=== PATIENT | female | born 1960 | race Caucasian/White ===

== ENCOUNTER 2021-06-02 07:54 | Outpatient (REF) | payer BC, SELFPAY ==
--- NOTE | ~2021-06-02 | MM_ITS ---
EXAMINATION: MM SCREENING DIGITAL BREAST TOMOSYNTHESIS, BILATERAL CLINICAL INFORMATION: Screening. Asymptomatic. The lifetime risk of breast cancer based on the Tyrer-Cuzick Model is 7%. COMPARISON: Mammography: 05/27/2020, 01/14/2019, 12/31/2017 TECHNIQUE: Digital breast tomosynthesis is performed in both the craniocaudal and mediolateral oblique views along with computer-aided detection (CAD). Synthesized 2D images are generated from the tomosynthesis. FINDINGS: The breasts are almost entirely fatty (ACR BI-RADS breast composition Category a). There are no significant masses, abnormal calcifications, or other abnormalities. Background stromal and fibroglandular densities are stable. The axilla and skin contours are unremarkable. No significant changes. MM/MM tomosynthesis screening BI IMPRESSION: No mammographic evidence of malignancy. ASSESSMENT: BI-RADS 1: Negative RECOMMENDATION: Routine annual mammography screening. This patient's information was entered into a reminder system with a target due date for their next mammogram.
== END 2021-06-02 07:55 | disposition home or self-care (01) ==
LOC: HO.MAMMO 07:54
PROVIDERS: PCP Internal Medicine; Visit Provider Internal Medicine
DX: Z12.31 Encounter for screening mammogram for malignant neoplasm of breast (principal)
CPT/HCPCS: 77063; 77067

== ENCOUNTER 2022-07-14 08:02 | Outpatient (REF) | payer BC, SELFPAY ==
--- NOTE | ~2022-07-14 | MM_ITS ---
EXAMINATION: MM SCREENING DIGITAL BREAST TOMOSYNTHESIS, BILATERAL CLINICAL INFORMATION: Screening. Asymptomatic. The lifetime risk of breast cancer based on the Tyrer-Cuzick Model is 6%. COMPARISON: Mammography: 06/02/2021, 05/27/2020, 01/14/2019 TECHNIQUE: Digital breast tomosynthesis is performed in both the craniocaudal and mediolateral oblique views along with computer-aided detection (CAD). Synthesized 2D images are generated from the tomosynthesis. FINDINGS: There are scattered areas of fibroglandular density (ACR BI-RADS breast composition Category b). There are no significant masses, abnormal calcifications, or other abnormalities. Parenchymal pattern is similar to prior studies. MM/MM tomosynthesis screening BI IMPRESSION: No mammographic evidence of malignancy. ASSESSMENT: BI-RADS 1: Negative RECOMMENDATION: Routine annual mammography screening. This patient's information was entered into a reminder system with a target due date for their next mammogram.
== END 2022-07-14 08:03 | disposition home or self-care (01) ==
LOC: HO.MAMMO 08:02
PROVIDERS: PCP Obstetrics & Gynecology; Visit Provider Internal Medicine
DX: Z12.31 Encounter for screening mammogram for malignant neoplasm of breast (principal)
CPT/HCPCS: 77063; 77067

== ENCOUNTER 2023-07-17 07:52 | Outpatient (REF) | payer BC, SELFPAY ==
--- NOTE | ~2023-07-17 | MM_ITS ---
EXAMINATION: MM SCREENING DIGITAL BREAST TOMOSYNTHESIS, BILATERAL CLINICAL INFORMATION: Screening. Asymptomatic. COMPARISON: Mammography: 07/14/2022, 06/02/2021, 05/27/2020, and dating back to 2012. TECHNIQUE: Digital breast tomosynthesis is performed in both the craniocaudal and mediolateral oblique views along with computer-aided detection (CAD). Synthesized 2D images are generated from the tomosynthesis. FINDINGS: The breasts are almost entirely fatty (ACR BI-RADS breast composition Category a). There are no suspicious masses, suspicious grouped calcifications, or areas of architectural distortion. The parenchymal pattern is stable from prior exams. There are no skin changes. MM/MM tomosynthesis screening BI IMPRESSION: No mammographic evidence of malignancy. ASSESSMENT: BI-RADS BI-RADS 1 - Negative RECOMMENDATION: Routine annual mammography screening. 1 year F/U This examination should not preclude the clinical evaluation of a suspicious palpable abnormality. This patient's information was entered into a reminder system with a target due date for their next mammogram.
== END 2023-07-17 07:53 | disposition home or self-care (01) ==
LOC: HO.MAMMO 07:52
PROVIDERS: PCP Internal Medicine; Visit Provider Obstetrics & Gynecology
DX: Z12.31 Encounter for screening mammogram for malignant neoplasm of breast (principal)
CPT/HCPCS: 77063; 77067

== ENCOUNTER → 2023-07-17 08:00 | Outpatient (BNV) | payer BC, SELFPAY | PROVIDERS: PCP Internal Medicine; Visit Provider Radiology Diagnostic Radiology | DX: Z12.31 Encounter for screening mammogram for malignant neoplasm of breast (principal) | CPT/HCPCS: 77063; 77067 ==

== ENCOUNTER 2024-08-15 07:34 | Outpatient (REF) | payer BC, SELFPAY ==
--- NOTE | ~2024-08-15 | MM_ITS ---
EXAMINATION: MM SCREENING DIGITAL BREAST TOMOSYNTHESIS, BILATERAL CLINICAL INFORMATION: Screening. Asymptomatic. COMPARISON: Mammography: Comparison is made with available priors TECHNIQUE: Digital breast mammography with tomosynthesis is performed in both the craniocaudal and mediolateral oblique views along with computer-aided detection (CAD). FINDINGS: There are scattered areas of fibroglandular density (ACR BI-RADS breast composition Category b). There are no significant masses, abnormal calcifications, or other abnormalities. MM/MM tomosynthesis screening BI IMPRESSION: No mammographic evidence of malignancy. ASSESSMENT: BI-RADS BI-RADS 1 - Negative RECOMMENDATION: Routine annual mammography screening. 1 year F/U This examination should not preclude the clinical evaluation of a suspicious palpable abnormality. This patient's information was entered into a reminder system with a target due date for their next mammogram. Electronically signed by: Malina Mccabe DO 08/26/2024 05:52 PM EDT
== END 2024-08-15 07:35 | disposition home or self-care (01) ==
LOC: HO.MAMMO 07:34
PROVIDERS: Absent Provider Obstetrics & Gynecology; PCP Internal Medicine; Visit Provider Internal Medicine
DX: Z12.31 Encounter for screening mammogram for malignant neoplasm of breast (principal)
CPT/HCPCS: 77063; 77067

== ENCOUNTER → 2024-08-15 07:45 | Outpatient (BNV) | payer BC, SELFPAY | PROVIDERS: Absent Provider Obstetrics & Gynecology; PCP Internal Medicine; Visit Provider Internal Medicine | DX: Z12.31 Encounter for screening mammogram for malignant neoplasm of breast (principal) | CPT/HCPCS: 77063; 77067 ==

== ENCOUNTER 2025-10-26 07:30 | Outpatient (REF) | payer BC, SELFPAY ==
--- OUTSIDE RECORDS SUMMARY | 2025-10-22 04:00 | XMS_ITS ---
Author Organization [facility] Address [address] [place] [address] Care Team Providers Care Automatic Grinder Operator Name Role Phone NANDINI CHAITANYA Primary Care Provider Allergies No Known Allergies REASON FOR VISIT CPX Medications Medication SIG (Take, Route, Frequency, Duration) Notes Start Date End Date Status Lisinopril-hydroCHLOROthia zide 20-25 MG Tablet 1 tablet Orally Once a day Active Naproxen 500 MG Tablet 1 tablet with dudley d or milk as needed Orally every 12 hrs 10/05/2023 Active Azelastine HCl 137 MCG/SPRAY Solution 2 puffs (1 spray in each nostril) Nasally Twice a day; Duration: 30 days Active Metoprolol Tartrate 50 MG Tablet 1 tablet with food Orally Twice a day Active Albuterol Sulfate HFA 108 (90 Base) MCG/ACT Aerosol Solution inhale 2 puff by INHALATION route every 4 - 6 hours as needed Inhalation 01/18/2023 Active traZODone HCl 50 MG Tablet 1-2 tablets a t bedtime Orally Once a day; Duration: 90 days Active Social History Tobacco Use: Social History Observation Description Date Details (start date - stop date) Never Smoker NA - NA Social History Tobacco Use: Social Info Question Answer Notes Smoking Are you a: never smoker Additional Details Category Social Info Options Details General Occupation: [employer] exposure: no alcohol use: no drug use: no Coffee/Tea/Soda: yes Marital Status experience no Living with Son Pets 2 cats smokers in household no Problems Problem Type SNOMED Code ICD Code Onset Dates Problem Status W/U Status Risk Notes Problem Seasonal allergic rhinitis (327939292) Seasonal allergic rhinitis, unspecified trigger (J30.2) Active confirmed Vital Signs Blood pressure systolic 114 mm Hg 10/22/20 25 Blood pressure diastolic 64 mm Hg 025 Height 64.5 in 10/22/2025 Weight 239.4 lbs 10/22/2025 BMI 40.45 kg/m2 10/22/2025 Encounters Encounter Location Date Provider Diagnosis [facility] [address] [place] [address] 10/22/2025 [facility] Encounter for genera l adult medical examination with abnormal findings Z00.01 ; Seasonal allergic rhinitis, unspecified trigger J30.2 ; Essential (primary) hypertension I10 ; Mild persistent asthma without complication J45.30 ; Generalized osteoarthritis M15.9 ; Prediabetes R73.03 ; Insomnia, unspecified type G47.00 and Morbid (severe) obesity due to excess calories E66.01 Assessments Encounter Date Diagnosis (ICD Code) Assessment Notes Treatment Notes Treatment Clinical Notes Section Notes 10/22/2025 Encounter for general adult medical examination with abnormal findings (ICD-10 - Z00.01) 1. Routine healthcare maintenance: Colonoscopy was done last year and is next due in 2033. Mammogram was done last year in July and she we will schedule her next before the end of the year. She is up-to-date with LINOTYPE OPERATOR. She will update fasting blood work. 2. Seasonal allergic rhinitis: Will trial Astelin nasal spray 3. Hypertension: Well-controlle d on present lisinopril/hyd rochlorothiazi de and metoprolol. No changes made today 4. Mild persistent asthma: Stable with as needed albuterol 5. Generalized osteoarthritis : Stable with as needed naproxen 6. Prediabetes: Will update A1c with dietary efforts 7.Insomnia : will renew trazodone which has worked well for her 8. Obesity: Continue encourage efforts at diet and exercise 10/22/2025 Seasonal allergic rhinitis, unspecified trigger (ICD-10 - J30.2) 1. Routine healthcare maintenance: Colonoscopy was done last year and is next due in 2033. Mammogram was done last year in July and she we will schedule her next before the end of the year. She is up-to-date with LINOTYPE OPERATOR. She will update fasting blood work. 2. Seasonal allergic rhinitis: Will trial Astelin nasal spray 3. Hypertension: Well-controlle d on present lisinopril/hyd rochlorothiazi de and metoprolol. No changes made today 4. Mild persistent asthma: Stable with as needed albuterol 5. Generalized osteoarthritis : Stable with as needed naproxen 6. Prediabetes: Will update A1c with dietary efforts 7.Insomnia : will renew trazodone which has worked well for her 8. Obesity: Continue encourage efforts at diet and exercise 10/22/2025 Essential (primary) hypertension (ICD-10 - I10) 1. Routine healthcare maintenance: Colonoscopy was done last year and is next due in 2033. Mammogram was done last year in July and she we will schedule her next before the end of the year. She is up-to-date with LINOTYPE OPERATOR. She will update fasting blood work. 2. Seasonal allergic rhinitis: Will trial Astelin nasal spray 3. Hypertension: Well-controlle d on present lisinopril/hyd rochlorothiazi de and metoprolol. No changes made today 4. Mild persistent asthma: Stable with as needed albuterol 5. Generalized osteoarthritis : Stable with as needed naproxen 6. Prediabetes: Will update A1c with dietary efforts 7.Insomnia : will renew trazodone which has worked well for her 8. Obesity: Continue encourage efforts at diet and exercise 10/22/2025 Mild persistent asthma without complication (ICD-10 - J45.30) 1. Routine healthcare maintenance: Colonoscopy was done last year and is next due in 2033. Mammogram was done last year in July and she we will schedule her next before the end of the year. She is up-to-date with LINOTYPE OPERATOR. She will update fasting blood work. 2. Seasonal allergic rhinitis: Will trial Astelin nasal spray 3. Hypertension: Well-controlle d on present lisinopril/hyd rochlorothiazi de and metoprolol. No changes made today 4. Mild persistent asthma: Stable with as needed albuterol 5. Generalized osteoarthritis : Stable with as needed naproxen 6. Prediabetes: Will update A1c with dietary efforts 7.Insomnia : will renew trazodone which has worked well for her 8. Obesity: Continue encourage efforts at diet and exercise 10/22/2025 Generalized osteoarthritis (ICD-10 - M15.9) 1. Routine healthcare maintenance: Colonoscopy was done last year and is next due in 2033. Mammogram was done last year in July and she we will schedule her next before the end of the year. She is up-to-date with LINOTYPE OPERATOR. She will update fasting blood work. 2. Seasonal allergic rhinitis: Will trial Astelin nasal spray 3. Hypertension: Well-controlle d on present lisinopril/hyd rochlorothiazi de and metoprolol. No changes made today 4. Mild persistent asthma: Stable with as needed albuterol 5. Generalized osteoarthritis : Stable with as needed naproxen 6. Prediabetes: Will update A1c with dietary efforts 7.Insomnia : will renew trazodone which has worked well for her 8. Obesity: Continue encourage efforts at diet and exercise 10/22/2025 Prediabetes (ICD-10 - R73.03) 1. Routine healthcare maintenance: Colonoscopy was done last year and is next due in 2033. Mammogram was done last year in July and she we will schedule her next before the end of the year. She is up-to-date with LINOTYPE OPERATOR. She will update fasting blood work. 2. Seasonal allergic rhinitis: Will trial Astelin nasal spray 3. Hypertension: Well-controlle d on present lisinopril/hyd rochlorothiazi de and metoprolol. No changes made today 4. Mild persistent asthma: Stable with as needed albuterol 5. Generalized osteoarthritis : Stable with as needed naproxen 6. Prediabetes: Will update A1c with dietary efforts 7.Insomnia : will renew trazodone which has worked well for her 8. Obesity: Continue encourage efforts at diet and exercise 10/22/2025 Insomnia, unspecified type (ICD-10 - G47.00) 1. Routine healthcare maintenance: Colonoscopy was done last year and is next due in 2033. Mammogram was done last year in July and she we will schedule her next before the end of the year. She is up-to-date with LINOTYPE OPERATOR. She will update fasting blood work. 2. Seasonal allergic rhinitis: Will trial Astelin nasal spray 3. Hypertension: Well-controlle d on present lisinopril/hyd rochlorothiazi de and metoprolol. No changes made today 4. Mild persistent asthma: Stable with as needed albuterol 5. Generalized osteoarthritis : Stable with as needed naproxen 6. Prediabetes: Will update A1c with dietary efforts 7.Insomnia : will renew trazodone which has worked well for her 8. Obesity: Continue encourage efforts at diet and exercise 10/22/2025 Morbid (severe) obesity due to excess calories (ICD-10 - E66.01) 1. Routine healthcare maintenance: Colonoscopy was done last year and is next due in 2033. Mammogram was done last year in July and she we will schedule her next before the end of the year. She is up-to-date with LINOTYPE OPERATOR. She will update fasting blood work. 2. Seasonal allergic rhinitis: Will trial Astelin nasal spray 3. Hypertension: Well-controlle d on present lisinopril/hyd rochlorothiazi de and metoprolol. No changes made today 4. Mild persistent asthma: Stable with as needed albuterol 5. Generalized osteoarthritis : Stable with as needed naproxen 6. Prediabetes: Will update A1c with dietary efforts 7.Insomnia : will renew trazodone which has worked well for her 8. Obesity: Continue encourage efforts at diet and exercise Plan Of Treatment Medication Medication Name Sig Start Date Stop Date Notes Lisinopril-hydroCHLOROthiazi d e 20-25 MG Tablet 1 tablet Orally Once a day Naproxen 500 MG Tablet 1 tablet with dudley d or milk as needed Orally every 12 hrs 10/05/2023 Azelastine HCl 137 MCG/SPRAY Solution 2 puffs (1 spray in each nostril) Nasally Twice a day; Duration: 30 days Metoprolol Tartrate 50 MG Tablet 1 tablet with food Orally Twice a day Albuterol Sulfate HFA 108 (9 0 Base) MCG/ACT Aerosol Solution inhale 2 puff by INHALATION route every 4 - 6 hours as needed Inhalation 01/18/2023 traZODone HCl 50 MG Tablet 1-2 tablets a t bedtime Orally Once a day; Duration: 90 days Pending Test Test Name Order Date EKG 10/22/2025 Next Appt Details Follow Up: 6 mos, Reason: Provider Name:CHAITANYA DELATORRE , 05/05/2026 09:00:00 AM, [address] [place], [address], History and Physical Notes * HPI (History of Present Illness) Category Sub-Category Detail Notes Category Not es Depression Screening PHQ-2 (2015 Edition) Little interest or pleasure in doing things?: Not at all Feeling down, depressed, or hopeless?: N ot at all Total Score: 0 Examination Category Sub-Category Detail Notes Category Not es General Examination HEENT: PERRLA, EOMI bilatera lly, nose clear Neck: supple, no lymphaden opathy, no thyromegaly Heart: RSR, normal S1S2 Lungs: clear to auscultatio n Abdomen: soft, non tender/non distended, no rebound tenderness, no guarding or rigidity Extremities: no edema General Appearance no apparent distress , pleasant Skin: normal, no rash Neuro alert and oriented x 3, gait normal Oral cavity: no lesions Peripheral pulses: Bilateral radial pre sent, Bilateral posterior tibial present, BilateralCarotids present No Bruits, Bilateral radial present Back: no CVA tenderness, s traight leg raise normal, , no spinal tenderness Lymphatics No nodes in neck Psych: oriented X 3, affect normal Progress Notes * EBENEZER VALDEZOB:1960 (65 yo F)Acc No.[id number]:10/22/2025 Progress Notes Patient: EYAL BAR Provider: Jocelynn DELATORRE M.D. :1960 A ge:65 Y S ex:Female Date:10/22/2025 Address:[address] [place] [id number] Subjective: * Chief Complaints: * C PX * HPI: D epression Screening: PHQ-2 (2015 Edition) L ittle interest or pleasure in doing things? N ot at all, F eeling down, depressed, or hopeless? N ot at all, T otal Score 0 . * ROS: C ONSTITUTIONAL: no m alaise. n o f ever. n o f atigue. n o c hills. E YES: no v ision change. n o r edness. E NT: no e ar pain. n o p ost nasal drip. n o h earing loss. n o n shani congestion. n o r hinorrhea. n o s neezing. n o?hoarseness. n o s ore throat. n o c ough. C ARDIOVASCULAR: no c hest pain. n o o rthopnea. n o P ND.?no s yncope. n o s hortness of breath. n o l eg swelling. n o d izziness. n o p alpitations. R ESPIRATORY: no c ough. n o s hortness of breath. n o w heezing. G ASTROINTESTINAL: no a bdominal pain. n o d ifficulty swallowing.?no h eartburn. n o n ausea. n o v omiting. n o b loating. n o c onstipation. n o d iarrhea. n o b lood in stool. G ENITOURINARY: no d ysuria. n o b lood in urine. n o f requent urination. D ERMATOLOGY: no r michel. n o m ole, g rowing in size, changing in color. M USCULOSKELETAL: no N julia pain. n o j oint pain. n o b ack pain. E NDOCRINE: no p olydipsia. n o p olyuria. H EMATOLOGY/LYMPH: no a bnormal bleeding. n o e asy bruising. ? P SYCHIATRIC: no a nxiety. n o d epression. A LLERGIC/IMMUNOLOGIC: no r unny nose. n o i tchy eyes. N EUROLOGIC: no h eadache. n o m penny loss. n o d izziness. n o g ait abnormality. 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 * Hospitalization/Major Diagno stic Procedure: Denies Past Hospitalization. Hospitalization Verified. * Family History: F ather: alive, Diabetes mellitus ,age : 71, diagnosed with Diabetes. M other: alive, Coronary artery disease ,age : 55, diagnosed with Heart Disease. S iblings: alive, brother - severe asthma. S ibling # 1: alive, sister- obesity. 1 brother(s) , 1 sister(s) . 1 son(s) , 1 daughter(s) - healthy. . F amily History Verified.. * Social History: T obacco Use: G eneral: S mokers in household: no. Alcohol use: no. Drug use: no. Coffee/Tea/Soda: yes. Marital Status: . Living with: Son. Occupation: [employer]. Asbestos exposure: no. experience: no. Pets: 2 cats. Social History Verified. * Medications: T akingNaproxen 500 MG Tablet 1 tablet with food or milk as needed Orally every 12 hrs traZODone HCl 50 MG Tablet 1-2 tablets at bedtime Orally Once a day Metoprolol Tartrate 50 MG Tablet 1 tablet with food Orally Twice a day Lisinopril-hydroCHLOROthiazide 20-25 MG Tablet 1 tablet Orally Once a day Albuterol Sulfate HFA 108 (90 Base) MCG/ACT Aerosol Solution inhale 2 puff by INHALATION route every 4 - 6 hours as needed Inhalation Taking Naproxen 500 MG Tablet 1 tablet with food or milk as needed Orally every 12 hrs Taking traZODone HCl 50 MG Tablet 1-2 tablets at bedtime Orally Once a day Taking Metoprolol Tartrate 50 MG Tablet 1 tablet with food Orally Twice a day Taking Lisinopril-hydroCHLOROthiazide 20-25 MG Tablet 1 tablet Orally Once a day Taking Albuterol Sulfate HFA 108 (90 Base) MCG/ACT Aerosol Solution inhale 2 puff by INHALATION route every 4 - 6 hours as needed Inhalation DiscontinuedAmoxicillin-Pot Clavulanate 875-125 MG Tablet 1 tablet Orally every 12 hrs Medication List reviewed and reconciled with the patientDiscontinued Amoxicillin-Pot Clavulanate 875-125 MG Tablet 1 tablet Orally every 12 hrs Medication List reviewed and reconciled with the patient * Allergies: N .K.D.A.yesAllergies Verified. Objective: * Vitals: H t: 64.5 in, Wt: 239.4 lbs, Temp: 98.6 F, HR: 65 /min, BP:114/64mm Hg, BMI:40.45Index, O2 Sat: 99% on r/a. * Examination: G eneral Examination: General Appearance n o apparent distress, pleasant. HEENT: P ERRLA, EOMI bilaterally, nose clear. Oral cavity: n o lesions. Neck: s upple, no lymphadenopathy, no thyromegaly. Heart: R SR, normal S1S2. Lungs: c lear to auscultation. Abdomen: s oft, non tender/non distended, no rebound tenderness, no guarding or rigidity. Back: no CVA tenderness, straight leg raise normal, , no spinal tenderness . Skin: n ormal, no rash. Peripheral pulses: B ilateral radial present, Bilateral?posterior tibial present, BilateralCarotids present No Bruits, Bilateral radial present.? Extremities: n o edema. Lymphatics No nodes in neck. Neuro a lert and oriented x3, gait normal. Psych: oriented X 3, affect normal. ? Assessment: * Assessment: 1. E ncounter for general adult medical examination with abnormal findings - Z00.01 ?2. S easonal allergic rhinitis, unspecified trigger - J30.2 3 . E ssential (primary) hypertension - I10 4 . M ild persistent asthma without complication - J45.30 5 . G eneralized osteoarthritis - M15.9 6 . P rediabetes - R73.03 7 . I nsomnia, unspecified type - G47.00 8 .?Morbid (severe) obesity due to excess calories - E66.01 1. Routine healthcare russ amelia: Colonoscopy was done last year and is next due in 2033. Mammogram was done last year in July and she we will schedule her next before the end of the year. She is up-to-date with LINOTYPE OPERATOR. She will update fasting blood work. 2. Seasonal allergic rhinitis: Will trial Astelin nasal spray 3. Hypertension: Well-controlled on present lisinopril/hydrochlorothiazide and metoprolol. No changes made today 4. Mild persistent asthma: Stable with as needed albuterol 5. Generalized osteoarthritis: Stable with as needed naproxen 6. Prediabetes: Will update A1c with dietary efforts 7.Insomnia : will renew trazodone which has worked well for her 8. Obesity: Continue encourage efforts at diet and exercise. Plan: * Treatment: 2. E ssential (primary) hypertension Continue Lisinopril-hydroCHLOROthiazide Tablet, 20-25 MG, 1 tablet, Orally, Once a day; C ontinue Metoprolol Tartrate Tablet, 50 MG, 1 tablet with food, Orally, Twice a day. L AB: Comp. Metabolic Panel [id number] (Ordered for 10/22/2025) (Collection Date & Time - 10/23/2025 11:56 AM) L AB: CBC, Platelet, No Differential-[id number] (Ordered for 10/22/2025) (Collection Date & Time - 10/23/2025 11:56 AM) I maging: EKG 3. M ild persistent asthma without complication Continue Albuterol Sulfate HFA Aerosol Solution, 108 (90 Base) MCG/ACT, inhale 2 puff by INHALATION route every 4 - 6 hours as needed, Inhalation. 4. G eneralized osteoarthritis Continue Naproxen Tablet, 500 MG, 1 tablet with food or milk as needed, Orally, every 12 hrs. ? 5. P rediabetes L AB: Hemoglobin [id number] (Ordered for 10/22/2025) (Collection Date & Time - 10/23/2025 11:56 AM) L AB: Lipid Panel-[id number] (Ordered for 10/22/2025) (Collection Date & Time - 10/23/2025 11:56 AM) 6. I nsomnia, unspecified type Refill traZODone HCl Tablet, 50 MG, 1-2 tablets at bedtime, Orally, Once a day, 90 days, 90, Refills 3. 7. M orbid (severe) obesity due to excess calories L AB: Hemoglobin [id number] (Ordered for 10/22/2025) (Collection Date & Time - 10/23/2025 11:56 AM) L AB: Lipid Panel-[id number] (Ordered for 10/22/2025) (Collection Date & Time - 10/23/2025 11:56 AM) * Procedure Codes: 9 3000 Electrocardiogram, complete * Preventive Medicine: Screening / Special Tests: M ammogram D ate 0 07/27/2025. C olonoscopy?Last done Colonoscopy 0 06/14/2024 10 year follow up, C olonoscopy 2 024. * Follow Up: 6 mos Billing Information: * Procedure Codes: 89960 Electrocardiogram, complete. * Electronic signature of CHAITANYA DELATORRE MD on 10/26/2025 at 07:35 AM EST Sign off status: Pending * Provider: Jocelynn DELATORRE M.D. Date: 12/23/2024 Generated for Mckay parker/Russell/eTransmitting on: 12/27/2024 07:35 AM EST
--- NOTE | ~2025-10-26 | MM_ITS ---
EXAMINATION: MM SCREENING DIGITAL BREAST TOMOSYNTHESIS, BILATERAL CLINICAL INFORMATION: Screening. Asymptomatic. COMPARISON: Mammography: Comparison is made with available priors TECHNIQUE: Digital breast mammography with tomosynthesis is performed in both the craniocaudal and mediolateral oblique views along with computer-aided detection (CAD). FINDINGS: There are scattered areas of fibroglandular density. There are no significant masses, abnormal calcifications, or other abnormalities. MM/MM tomosynthesis screening BI IMPRESSION: No mammographic evidence of malignancy. ASSESSMENT: BI-RADS Category 1: Negative RECOMMENDATION: Routine annual mammography screening. 1 year F/U This examination should not preclude the clinical evaluation of a suspicious palpable abnormality. This patient's information was entered into a reminder system with a target due date for their next mammogram. Electronically signed by: Malina Mccabe DO 10/27/2025 11:29 AM [place]
--- OUTSIDE RECORDS SUMMARY | 2025-10-26 07:34 | XMS_ITS | Continuity of Care Document ---
Author Organization [facility] Address [address] [place] [address] Phone [phone] Social History Type Date Description Comments Sex Female Sex Unknown Medical Devices Description No Information Available Encounters Description No Information Available Assessments Description No Information Available Plan of Treatment No Information Available Functional Status Description No Information Available Mental Status Description No Information Available Referrals Description No Information Available
--- OUTSIDE RECORDS SUMMARY | 2025-10-26 07:35 | XMS_ITS ---
Author Name [facility] Organization Unknown History of Medication Use Medication Directions Dispensed Refills Start Date End Date Stat us amoxicillin-pot clavulanate 08/22/2025 active Acidophilus 08/22/2025 active Encounters Encounter Type Encounter Reason Primary Diagnosis Location Date Ambulatory TBE Acute pharyngiti s, unspecified [facility]) 08/22/2025 Care Team Organization Name Specialty Phone Email Start Date End Da te [facility] 08/22/2025 [facility] 08/22/2025
--- OUTSIDE RECORDS SUMMARY | 2025-10-26 07:35 | XMS_ITS | Patient Health Record ---
Author Organization [facility] Address [address] [place] [address] Care Team Providers Care Plsql Developer Name Role Phone NANDINICHAITANYA NICKERSON Primary Care Provider [phone] Allergies No Known Allergies Reason For Referral Reason Valdo Singh, DX :ANNUAL Pap Z12.4 Referral Organization [facility] philip Referring Provider First Name CHAITANYA Referring Provider Last Name NANDINI Referring Provider Speciality Internal M edicine Referred Provider VALDO SINGH Referred Provider Specialty OB - Gynecol ogy General Notes [facility] 11/14/2024 09:36:39 AM > Fax: , Requesting 99 visits, DX: Pap , -Dr Singh., Shaila [facility] Admin 11/14/2024 02:53:15 PM > referral approved for 12 visits starting on 11/17/24>faxed to [phone]>encounter closed Referral Priority Urgent Referral Appointment Date 11/17/2024 Reason Appt PT eval and taya at Diagnosis 1 Strain of lumbar reg ion, initial encounter (S39.012A) Referral Organization [facility] [employer] Referring Provider First Name CHAITANYA Referring Provider Last Name NANDINI Referring Provider Speciality Internal edicine Referred Provider Specialty Physical The rapy General Notes Patricia [facility] [employer] Farmer 09/12/2025 07:59:28 AM > Jacqueline where does pt want to go to PT? Once we know referral can be sent and pt can call and schedule. Referral Priority Routine Medications Medication SIG (Take, Route, Frequency, Duration) Notes Start Date End Date Status Lisinopril-hydroCHLOROthia zide 20-25 MG Tablet 1 tablet Orally Once a day Active Albuterol Sulfate HFA 108 (90 Base) MCG/ACT Aerosol Solution inhale 2 puff by INHALATION route every 4 - 6 hours as needed Inhalation 01/18/2023 Active Naproxen 500 MG Tablet 1 tablet with dudley d or milk as needed Orally every 12 hrs 10/05/2023 Active Azelastine HCl 137 MCG/SPRAY Solution 2 puffs (1 spray in each nostril) Nasally Twice a day; Duration: 30 days Active traZODone HCl 50 MG Tablet 1-2 tablets a t bedtime Orally Once a day; Duration: 90 days Active Metoprolol Tartrate 50 MG Tablet 1 tablet with food Orally Twice a day Active Immunizations Vaccine Route Administration Date Status Comme nts Zoster recombinant Unknown 07/15/2020 Administered Zoster recombinant Unknown 10/04/2020 Administered [facility] Td (Tetanus Diphtheria) Unknown 08/18/2008 Administered Moderna COVID-19 mRNA LNP-S PF Unknown 02/27/2021 Administered Influenza, Flucelvax IM Intramuscular 10/05/2023 Administe red Social History Tobacco Use: Social History Observation Description Date Details (start date - stop date) Never Smoker NA - NA Social History Tobacco Use: Social Info Question Answer Notes Smoking Are you a: never smoker Additional Details Category Social Info Options Details General Occupation: [employer] asbestos exposure: no alcohol use: no drug use: no Coffee/Tea/Soda: yes Marital Status experience no Living with Son Pets 2 cats smokers in household no Problems Problem Type SNOMED Code ICD Code Onset Dates Problem Status W/U Status Risk Notes Problem Obstructive sleep apnea (34279191) Obstructive sleep apnea (G47.33) Active confirmed Problem Essential hypertension (69004760) Essential (primary) hypertension (I10) Active confirmed Problem Generalized osteoarthritis (032274094) Generalized osteoarthritis (M15.9) Active confirmed Problem Morbid obesity (disorder) (536581536) Morbid (severe) obesity due to excess calories (E66.01) Active confirmed Problem Primary insomnia (5569713) Primary insomnia (F51.01) Active confirmed Problem Uncomplicated mild persistent asthma (479474188) Mild persistent asthma, uncomplicated (J45.30) Active confirmed Problem Uncomplicated mild persistent asthma (995247598) Mild persistent asthma without complication (J45.30) Active confirmed Problem Acute severe exacerbation of mild persistent asthma (disorder) (461292383) Mild persistent asthma with acute exacerbation (J45.31) Active confirmed Problem Insomnia (802706444) Insomnia, unspecified type (G47.00) Active confirmed Problem Prediabetes (300659054) Prediabetes (R73.03) Active confirmed Problem Seasonal allergic rhinitis (401270382) Seasonal allergic rhinitis, unspecified trigger (J30.2) Active confirmed Problem Body mass index 40+ - severely obese (741764006) Body mass index [BMI] 40.0-44.9, adult (Z68.41) Active confirmed Vital Signs Blood pressure diastolic 64 mm Hg 10/22/2025 Height 64.5 in 10/22/2025 Blood pressure systolic 114 mm Hg 10/22/2025 Weight 239.4 lbs 10/22/2025 BMI 40.45 kg/m2 10/22/2025 Encounters Encounter Location Date Provider Diagnosis [address] [address] 10/22/2025 [facility] Encounter for genera l adult medical examination with abnormal findings Z00.01 ; Seasonal allergic rhinitis, unspecified trigger J30.2 ; Essential (primary) hypertension I10 ; Mild persistent asthma without complication J45.30 ; Generalized osteoarthritis M15.9 ; Prediabetes R73.03 ; Insomnia, unspecified type G47.00 and Morbid (severe) obesity due to excess calories E66.[address] [address] 09/11/2025 [facility] Strain of lumbar region, initial encounter S39.012A ; Fever, unspecified R50.9 and Acute non-recurrent frontal sinusitis J01.[address] [address] 05/01/2025 [facility] Essential (primary) hypertension I10 ; Mild persistent asthma, uncomplicated J45.30 ; Primary insomnia F51.01 ; Morbid (severe) obesity due to excess calories E66.01 and Prediabetes R73.[address] [address] 10/24/[address] [address] 10/10/[address] [place] [address] 10/09/2025 CHAITANYA FERRARIFORD Acute UTI N39.0 [facility] [address] [place] [address] 09/11/[address] [facility] [address] [place] [address] 07/10/[address] [facility] [address] [place] [address] 07/09/2025 CHAITANYA DELATORRE Acute UTI N39.0 Assessments Encounter Date Diagnosis (ICD Code) Assessment Notes Treatment Notes Treatment Clinical Notes Section Notes 10/22/2025 Seasonal allergic rhinitis, unspecified trigger (ICD-10 - J30.2) 1. Routine healthcare maintenance: Colonoscopy was done last year and is next due in 2033. Mammogram was done last year in July and she we will schedule her next before the end of the year. She is up-to-date with PHYSICAL THERAPIST CLINIC DIRECTOR. She will update fasting blood work. 2. [...] Continue encourage efforts at diet and exercise 10/09/2025 Acute UTI (ICD-10 - N39.0) 07/09/2025 Acute UTI (ICD-10 - N39.0) 05/01/2025 Essential (primary) hypertension (ICD-10 - I10) 1. Hypertension: Stable on present lisinopril and metoprolol. No changes made today 2. Mild persistent asthma: Stable on current bronchodilator s. She will call at the first sign of a flare 3. Insomnia: Some response to trazodone. She will continue 4. Prediabetes: A1c was 6.0. Will recheck with her physical in the fall 10/22/2025 Encounter for general adult medical examination with abnormal findings (ICD-10 - Z00.01) 1. Routine healthcare maintenance: Colonoscopy was done last year and is next due in 2033. Mammogram was done last year in July and she we will schedule her next before the end of the year. She is up-to-date with PHYSICAL THERAPIST CLINIC DIRECTOR. She will update fasting blood work. 2. [...] Continue encourage efforts at diet and exercise 05/01/2025 Mild persistent asthma, uncomplicated (ICD-10 - J45.30) 1. Hypertension: Stable on present lisinopril and metoprolol. No changes made today 2. Mild persistent asthma: Stable on current bronchodilator s. She will call at the first sign of a flare 3. Insomnia: Some response to trazodone. She will continue 4. Prediabetes: A1c was 6.0. Will recheck with her physical in the fall 09/11/2025 Fever, unspecified (ICD-10 - R50.9) 1. Lumbar strain: Will refer for physical therapy as initial treatment. If not improving would consider advanced imaging 2. Fever/sinusiti s: Both influenza and COVID swabs were negative today. Will treat for bacterial sinusitis with Augmentin. Encourage fluids and irrigation. She will let me know if not improving 09/11/2025 Strain of lumbar region, initial encounter (ICD-10 - S39.012A) 1. Lumbar strain: Will refer for physical therapy as initial treatment. If not improving would consider advanced imaging 2. Fever/sinusiti s: Both influenza and COVID swabs were negative today. Will treat for bacterial sinusitis with Augmentin. Encourage fluids and irrigation. She will let me know if not improving 09/11/2025 Acute non-recurrent frontal sinusitis (ICD-10 - J01.10) 1. Lumbar strain: Will refer for physical therapy as initial treatment. If not improving would consider advanced imaging 2. Fever/sinusiti s: Both influenza and COVID swabs were negative today. Will treat for bacterial sinusitis with Augmentin. Encourage fluids and irrigation. She will let me know if not improving 05/01/2025 Primary insomnia (ICD-10 - F51.01) 1. Hypertension: Stable on present lisinopril and metoprolol. No changes made today 2. Mild persistent asthma: Stable on current bronchodilator s. She will call at the first sign of a flare 3. Insomnia: Some response to trazodone. She will continue 4. Prediabetes: A1c was 6.0. Will recheck with her physical in the fall 10/22/2025 Essential (primary) hypertension (ICD-10 - I10) 1. Routine healthcare maintenance: Colonoscopy was done last year and is next due in 2033. Mammogram was done last year in July and she we will schedule her next before the end of the year. She is up-to-date with PHYSICAL THERAPIST CLINIC DIRECTOR. She will update fasting blood work. 2. [...] of the year. She is up-to-date with PHYSICAL THERAPIST CLINIC DIRECTOR. She will update fasting blood work. 2. [...] Continue encourage efforts at diet and exercise 05/01/2025 Morbid (severe) obesity due to excess calories (ICD-10 - E66.01) 1. Hypertension: Stable on present lisinopril and metoprolol. No changes made today 2. Mild persistent asthma: Stable on current bronchodilator s. She will call at the first sign of a flare 3. Insomnia: Some response to trazodone. She will continue 4. Prediabetes: A1c was 6.0. Will recheck with her physical in the fall 05/01/2025 Prediabetes (ICD-10 - R73.03) 1. Hypertension: Stable on present lisinopril and metoprolol. No changes made today 2. Mild persistent asthma: Stable on current bronchodilator s. She will call at the first sign of a flare 3. Insomnia: Some response to trazodone. She will continue 4. Prediabetes: A1c was 6.0. Will recheck with her physical in the fall 10/22/2025 Generalized osteoarthritis (ICD-10 - M15.9) 1. Routine healthcare maintenance: Colonoscopy was done last year and is next due in 2033. Mammogram was done last year in July and she we will schedule her next before the end of the year. She is up-to-date with PHYSICAL THERAPIST CLINIC DIRECTOR. She will update fasting blood work. 2. [...] of the year. She is up-to-date with PHYSICAL THERAPIST CLINIC DIRECTOR. She will update fasting blood work. 2. [...] of the year. She is up-to-date with PHYSICAL THERAPIST CLINIC DIRECTOR. She will update fasting blood work. 2. [...] of the year. She is up-to-date with PHYSICAL THERAPIST CLINIC DIRECTOR. She will update fasting blood work. 2. [...] at diet and exercise Plan Of Treatment Pending Test Test Name Order Date EKG 10/22/2025 Future Test Test Name Order Date LIPID PANEL 01/08/2024 COMPREHENSIVE METABOLIC PANEL 01/08/2024 HEMOGLOBIN A1C 01/08/2024 Next Appt Details Provider Name:CHAITANYA DELATORRE , 05/05/2026 09:00:00 AM, [address] [place], [address], Insurance Providers Payer Name Payer Address Payer Phone Subscriber Number Group Number Insured Name Patient Relationship to Insured Coverage Start Date Coverage End Date [employer] [address] [place] [address] [id number] EYAL VALDEZ Self - patient is the insured Medical (General) History Medical History History ICD Code Hypertension, Asthma, Problems: Gastroesophageal reflux diseas e, Problems: Genital herpes simplex Problems: Mixed hyperlipidemia, Surgical History Surgery Date(Month/Year) Cholecystitis, Sx_Procedure : Cholecyste ctomy Arthrocentesis of the right shoulder jef nt 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
== END 2025-10-26 07:31 | disposition home or self-care (01) ==
LOC: HO.MAMMO 07:30
PROVIDERS: PCP Internal Medicine; Visit Provider Internal Medicine
DX: Z12.31 Encounter for screening mammogram for malignant neoplasm of breast (principal)
CPT/HCPCS: 77063; 77067

== ENCOUNTER → 2025-10-26 07:30 | Outpatient (BNV) | payer BC, SELFPAY | PROVIDERS: PCP Internal Medicine; Visit Provider Internal Medicine | DX: Z12.31 Encounter for screening mammogram for malignant neoplasm of breast (principal) | CPT/HCPCS: 77063; 77067 ==